=== PATIENT | male | born 1970 | race Asian ===

== ENCOUNTER 2017-03-11 11:31 | Emergency (ER) | payer BC ==
--- NOTE | ~2017-03-11 | CR181 ---
[facility] A Service of [facility] & [facility] RADIOLOGY TEXT RESULTS PATIENT: GABRIEL WHITMAN V LOCATION: [facility] : 70 UNIT #: [id number] AGE: [address]: Arlet Severino SEX: M ORDER DR: [id number] [facility] [address] [place], [place] [address] [id number] E MR#: [id number] Acc #: [id number] NAME: GABRIEL WHITMAN : 1970 SEX: M STUDY DATE/TIME: 03/11/2017 14:00 UNIT: [facility] ROOM: STUDY DESCRIPTION: CR Lumbar Spine 2 or 3 Views Attending Physician: Arlet Severino Pa-C Ordering Physician: Arlet Severino Pa-C Primary Care Physician: Primary Care Physician No MEDICAL IMAGING REPORT This report is preliminary unless electronic signature is present EXAM Lumbar spine series 03/11/2017 HISTORY Left leg pain and low back pain 3 days duration. No injury. FINDINGS AP lateral views of the lumbar spine are presented. 5 lumbar-type vertebral segments. Alignment normal. Vertebral body heights normal. Mild narrowing L1-L2, L2-L3 intervertebral disc spaces. Facet joint relationships are normal. Visualized lower thoracic spine and bony pelvis unremarkable. The visualized bowel gas pattern is normal. There are atherosclerotic arterial calcifications. There are tubular densities superimposed over the pelvis on the lateral view not visualized on the frontal view. Exact location unclear. These may be extrinsic to the patient. Some form of implanted device not excluded. Correlate clinically. Dictated by... Lalito Pool M.D. THIS IS AN ELECTRONICALLY VERIFIED REPORT Lalito Pool M.D. at 03/12/2017 5:39 PM JUNIOR/mounika TD: 03/11/2017 17:06 JOB #: [id number] MEDICAL IMAGING REPORT Page 1 of 1 COPY
--- NOTE | ~2017-03-11 | US85 ---
[facility] A Service of [facility] RADIOLOGY TEXT RESULTS PATIENT: GABRIEL WHITMAN V LOCATION: [facility] : 70 UNIT #: [id number] AGE: [address]: Arlet Severino SEX: M ORDER DR: [id number] [facility] [address] [place], [place] [address] [id number] E MR#: [id number] Acc #: [id number] NAME: GABRIEL WHITMAN : 1970 SEX: M STUDY DATE/TIME: 03/11/2017 13:43 UNIT: [facility] ROOM: STUDY DESCRIPTION: [facility] [place] [facility] or [facility] Attending Physician: Arlet Severino Pa-C Ordering Physician: Arlet Severino Pa-C Primary Care Physician: No Primary Care Physician MEDICAL IMAGING REPORT This report is preliminary unless electronic signature is present EXAM Left lower extremity Doppler venous ultrasound. DATE 03/11/2017 HISTORY 46-year-old male with left lower extremity pain in the thigh for 3 weeks. No known injury. COMPARISON None. FINDINGS Real time coelho-scale, color Doppler and SPECT Doppler imaging was performed of the left lower extremity veins from the groin to the calf. The left common femoral, femoral, popliteal, anterior and posterior tibial and peroneal veins demonstrate normal flow, compressibility and/or augmentation. No deep venous thrombosis is seen. Incidental note is made of a simple left popliteal fossa cyst measuring 1.8 x 1.4 x 1.1 cm. IMPRESSION 1. No left lower extremity deep venous thrombosis. 2. 1.8 cm left popliteal fossa cyst. Dictated by... Violet Ruano M.D. THIS IS AN ELECTRONICALLY VERIFIED REPORT Violet Ruano M.D. at 03/14/2017 8:30 AM Sharri TD: 03/11/2017 15:24 [facility] A Service of [facility] RADIOLOGY TEXT RESULTS PATIENT: GABRIEL WHITMAN V LOCATION: [facility] : 70 UNIT #: [id number] AGE: [address]: Arlet Severino SEX: M ORDER DR: CHARANJIT #: [id number] MEDICAL IMAGING REPORT Page 1 of 1 COPY
[~2017-03-11 11:31] MED LIST: BACTRIM DS TABL1 TAB PO; BENADRYL PO; DOXYCYCLINE PO; MEDROL PO
== END 2017-03-11 15:00 | disposition home or self-care (01) ==
LOC: CFTX 11:31 → CED 11:31 → CFTX 14:41 → CED 15:00
DX: M79.652 Pain in left thigh (principal); M54.5 Low back pain; Z87.891 Personal history of nicotine dependence
CPT/HCPCS: 72100; 93971; 99284